=== PATIENT | male | born 1955 | race American Indian/Alaskan Native ===

== ENCOUNTER 2019-11-18 13:50 | Inpatient (IN) | payer OTHER ==
--- NOTE | 2019-11-18 14:31 | BHS.RME ---
Substance Use & Tx History - Substance Use History Alcohol Substance amount: 1/2 pint to 1 pint vodka Frequency of use: Daily Substance route: Oral Date of Last Use: 11/17/19 Physical/Psych/Mental Status - Behavior General Behavior: Increased activity (restlessness, agitation) Eye Contact: Normal - Cooperativeness Cooperativeness: Cooperative - Thinking Thought Processes: Tight, Logical, Goal Directed Thought content: Future oriented - Physical Health Problems Is patient presently having any pain?: No Does patient presently have any injuries (include location): No Does patient currently have a fever: No Is patient : No CIWA Nausea/Vomitin-No Nausea/No Vomiting Muscle Tremors: 1-None Visible, but [place] Anxiety: 0-No Anxiety, at Ease Agitation: 0-Normal Activity Paroxysmal Sweats: No Perspiration Orientation: 0-Oriented Tacttile Disturbances: 0-None Auditory Disturbances: 0-None Visual Disturbances: 0-None
--- NOTE | 2019-11-18 14:40 | BHS.RME ---
Substance Use & Tx History - Substance Use History Alcohol Substance amount: 1/2 pint to 1 pint vodka Frequency of use: Daily Substance route: Oral Date of Last Use: 11/18/19 Physical/Psych/Mental Status - Behavior General Behavior: Increased activity (restlessness, agitation) Eye Contact: Normal - Cooperativeness Cooperativeness: Cooperative - Thinking Thought Processes: Tight, Logical, Goal Directed - Physical Health Problems Is patient presently having any pain?: No Does patient presently have any injuries (include location): No Does patient currently have a fever: No Is patient : No CIWA Nausea/Vomitin-Mild Nausea/No Vomiting Muscle Tremors: 3 Anxiety: 2 Agitation: 2 Paroxysmal Sweats: 1-Minimal Palms Moist Orientation: 1-Uncertain about Date Tacttile Disturbances: 0-None Auditory Disturbances: 0-None Visual Disturbances: 0-None Headache: 0-None Present (not yet in withdrawals due to having drank today) CIWA-Ar Total Score: 10
[2019-11-18 15:51] VITALS: BMI 21.4
--- NOTE | 2019-11-18 16:43 | HP ---
CIWA Score Nausea/Vomitin-Mild Nausea/No Vomiting Muscle Tremors: 3 Anxiety: 2 Agitation: 2 Paroxysmal Sweats: 1-Minimal Palms Moist Orientation: 1-Uncertain about Date Tacttile Disturbances: 0-None Auditory Disturbances: 0-None Visual Disturbances: 0-None Headache: 0-None Present (not yet in withdrawals due to having drank today) CIWA-Ar Total Score: 10 - Admission Criteria OASAS Guidelines: Admission for Medically Managed Detox: Requires at least one of the followin. CIWA greater than 12 2. Seizures within the past 24 hours 3. Delirium tremens within the past 24 hours 4. Hallucinations within the past 24 hours 5. Acute intervention needed for co occurring medical disorder 6. Acute intervention needed for co occurring psychiatric disorder 7. Severe withdrawal that cannot be handled at a lower level of care (continued vomiting, continued diarrhea, abnormal vital signs) requiring intravenous medication and/or fluids 8. Admitting History and Physical - Admission Chief Complaint: alcohol detox History of Present Illness: CC: Alcohol Detox and leg swelling HPI: Michoacano is a 64 year old man from [facility], who presents to [facility] for alcohol detox and painful leg swelling. He states that the leg swelling started on the evening of 11/07; the swelling increased and he sought care on 11/10 in the ED at [facility] -- he states that they 'did not do anything for me'. On 11/16 he was seen in outpatient clinic (does not remember by who or where) and was told to report to [facility] for treatment. He states that he is experiencing a burning sensation 11/06 in the calves and feet. His shoes have been hurting his feet, and have caused an abrasion that is now draining purulent fluid over the dorsal aspect of the right foot. He does use a cane at baseline (for occasional pain radiating down the right leg), but has never experienced swelling like this before. He reports that a month ago he experienced 2 days of vomiting and decreased appetite, followed by 10 days of chest pain that resolved with rest. He started drinking at age 21, has had withdrawal seizures in the past (last 10 years ago). Will be transferred to ED at [facility] [[email or web address]] - Substance Use History Alcohol Substance amount: 1/2 pint vodka Frequency of use: Daily Substance route: Oral Date of Last Use: 11/18/19 PMH: Hypertension PSH: Surgical intervention for laceration wound to left calf (~2004) Psych: None Social: Lives with in [place] History Source: Patient Limitations to Obtaining History: No Limitations - Smoking History Smoking history: Former smoker Have you smoked in the past 12 months: No If you are a former smoker, when did you quit?: 07/17 - Alcohol/Substance Use Hx Alcohol Use: Yes - Social History Usual Living Arrangement: Yes: With Spouse Admission ROS S - [facility] Chief Complaint: alcohol detox Allergies/Adverse Reactions: Allergies Allergy/AdvReac Type Severity Reaction Status Date / Time No Known Allergies Allergy Verified 11/18/19 15:44 Exam Limitations: No Limitations - Ebola screening Have you traveled outside of the country in the last 21 days: No Have you had contact with anyone from an Ebola affected area: No Have you been sick,other than usual withdrawal symptoms: No Do you have a fever: No - Review of Systems Constitutional: No Symptoms Reported EENT: denies: Eye Pain, Ear Pain, Nose Congestion Respiratory: denies: Cough, Orthopnea, Shortness of Breath Cardiac: reports: Edema. denies: Chest Pain GI: denies: Constipated, Diarrhea, Nausea, Rectal Bleeding, Vomiting, Abdominal cramping : reports: No Symptoms Reported Musculoskeletal: reports: Back Pain (lower back pain), Joint Pain (knee pain hx arthritis) Integumentary: reports: Change in Color (reports recent development of hyperpigmentation over feet, ankles, and lower calves - onset coinciding with development of edema). denies: Pruritus, Rash Neuro: reports: Numbness (bilateral feet), Unsteady Gait. denies: Headache Endocrine: reports: No Symptoms Reported Hematology: reports: No Symptoms Reported Psychiatric: reports: No Sypmtoms Reported Patient History - Patient Medical History Hx Asthma: No Hx Chronic Obstructive Pulmonary Disease (COPD): No Hx Cardiac Disorders: No Hx Hypertension: Yes Hx Seizures: No Hx Diabetes: No Hx Gastrointestinal Disorders: No Hx Genitourinary Disorders: No Hx Sexually Transmitted Disorders: No Hx Renal Disease (ESRD): No Hx Depression: Yes Hx Suicide Attempt: No Hx Schizophrenia: No - Patient Surgical History Past Surgical History: Yes Hx Orthopedic Surgery: Yes (L leg sx) Anesthesia Reaction: No - PPD History Previous Implant?: Yes Documented Results: Negative w/o proof Implanted On Prior [facility] Admission?: No - Smoking Cessation Smoking history: Current every day smoker Have you smoked in the past 12 months: No If you are a former smoker, when did you quit?: 07/17 Hx Chewing Tobacco Use: No Initiated information on smoking cessation: Yes 'Breaking Loose' booklet given: 11/18/19 - Substances abused Alcohol Substance route: Oral Frequency: 3-6 times per week Amount used: /2 pint vodka Age of first use: 21 Date of last use: 11/18/19 Admission Physical Exam S - Vital Signs Vital Signs: Vital Signs - 24 hr 11/18/19 15:48 Temperature 97.7 F Pulse Rate 86 Respiratory 18 Rate Blood Pressure 178/94 H - Physical General Appearance: Yes: Thin, Tremorous, Anxious, Other (thin man resting in chair with lower extremity edema) HEENTM: Yes: Normocephalic, Normal Voice Respiratory: Yes: Within Normal Limits, Lungs Clear, No Accessory Muscle Use Neck: Yes: Within Normal Limits Breast: Yes: Breast Exam Deferred Cardiology: Yes: Regular Rhythm, S1, S2, Tachycardia Abdominal: Yes: Normal Bowel Sounds, Non Tender, Flat, Soft Back: Yes: CVA Tenderness (lumbar spine) Musculoskeletal: Yes: Joint swelling (bilateral knees), Muscle Pain (bilateral calves) Extremities: Yes: Other (Bilateral lower extremity edema 2+ with hyperpigmentation of feet and ankles.) Neurological: Yes: Within Normal Limits, Fully Oriented, Alert, Normal Mood/Affect Integumentary: Yes: Pitting Edema - Diagnostic (1) Alcohol use disorder Current Visit: Yes Status: Acute (2) Hypertension Current Visit: Yes Status: Acute Breathalyzer - Breathalyzer Breathalyzer: 0.074 Urine Drug Screen - Test Device Lot number: [id number] Expiration date: 07/05/21 - Control Is test valid?: Yes - Results Drug screen NEGATIVE: No Urine drug screen results: BZO-Benzodiazepines Inpatient Rehab Admission - Rehab Decision to Admit Inpatient rehab admission?: No
--- NOTE | 2019-11-19 02:53 | PN ---
EVEL[facility] Progress Note Note: Patient came back from emergency room where he was sent to evaluate bilateral leg pain and swelling. In emergency room, he was evaluated with lab work, ultrasound, EKG and chest x-ray and the results were within normal. Patient is to continue detox and medications as ordered. Vital Signs Temperature 97.5 F L 11/19/19 02:38 Pulse Rate 91 H 11/19/19 02:38 Respiratory Rate 18 11/19/19 02:38 Blood Pressure 166/96 11/19/19 02:38 O2 Sat by Pulse Oximetry (%) Action: Continue detox
[2019-11-19] MEDS ORDERED: BISMUTH SUBSALICYLATE 524 MG/30 ML UD PO PRN (03:00)
[2019-11-19] MEDS ORDERED: METHOCARBAMOL 500 MG TABLET PO PRN (03:00)
[2019-11-19] MEDS ORDERED: MAG HYDROX/AL HYDROX/SIMETH 30 ML UNIT-DOSE CUP PO PRN (03:00)
[2019-11-19] MEDS ORDERED: ACETAMINOPHEN 325 MG TABLET (FP) PO PRN ×2 (03:00)
[2019-11-19] MEDS ORDERED: MENTHOL/PHENOL 1 EACH UD MM PRN (03:00)
[2019-11-19] MEDS ORDERED: ONDANSETRON *ODT* 4 MG TABLET SL ONE (03:00)
[2019-11-19] MEDS ORDERED: MAGNESIUM HYDROX 2400MG/30ML ORAL SUSPENSION 30 ML CUP PO PRN (03:00)
[2019-11-19] MEDS ORDERED: MAGNESIUM CITRATE 300 ML BOTTLE PO PRN (03:00)
[2019-11-19] MEDS ORDERED: IBUPROFEN 400 MG TABLET (FP) PO PRN (03:00)
[2019-11-19] MEDS ORDERED: chlordiazePOXIDE HCL 10 MG CAPSULE PO PRN (03:00)
[2019-11-19] MEDS ORDERED: cloNIDine HCL 0.1 MG TABLET PO ONE (04:14)
[2019-11-19] MEDS: chlordiazePOXIDE HCL 25 MG CAPSULE PO SCH ×3 (04:32→21:07)
[2019-11-19] MEDS ORDERED: PATIENT'S OWN MEDICATION (NON-FORMULARY) (Thiamine Mononitrate [Vitamin B-1] 100 MG) PO SCH (10:00)
--- NOTE | 2019-11-19 10:10 | PN ---
[facility] CIWA - CIWA Score Nausea/Vomitin-No Nausea/No Vomiting Muscle Tremors: 2 Anxiety: 2 Agitation: 2 Paroxysmal Sweats: No Perspiration Orientation: 0-Oriented Tacttile Disturbances: 0-None Auditory Disturbances: 2-Mild Harshness/Frighten Visual Disturbances: 1-Very Mild Sensitivity Headache: 0-None Present CIWA-Ar Total Score: 9 BHS Progress Note (SOAP) Subjective: Complaints of b/l legs swelling and pain, anxiety, tremors, light and noise sensitivity. Objective: 11/19/19 10:08 Vital Signs 11/19/19 11/19/19 11/19/19 02:38 04:00 04:01 Temperature 97.5 F L 97.1 F L Pulse Rate 91 H 86 80 Respiratory 18 16 16 Rate Blood Pressure 166/96 140/114 H 180/103 H O2 Sat by Pulse 96 Oximetry (%) Labs pending Assessment: 11/19/19 10:09 Alert and oriented x 3, in no acute respiratory distress. Full ROM, ambulating in the unit with cane. B/l legs swelling Withdrawal symptoms. 11/19/19 10:10 Plan: Continue detox protocol. B/l leg elevation.
[2019-11-19] MEDS: PRENATAL VITAMINS W/ FOLIC ACID TABLET (FP) PO SCH (10:20)
[2019-11-19] MEDS: FAMOTIDINE 20 MG TABLET PO SCH (10:20)
[2019-11-19] MEDS: LISINOPRIL 10 MG TABLET (FP) PO SCH (10:20)
[2019-11-19] MEDS: FOLIC ACID 1 MG TABLET (FP) PO SCH (11:58)
[2019-11-19] MEDS: CYANOCOBALAMIN 1,000 MCG TABLET (FP) PO SCH (11:59)
[2019-11-19 12:21] LABS: HEMATOCRIT 25.6 % (35.4-49); HEMOGLOBIN 8.4 GM/dL (11.7-16.9); MCH 32.8 pg (25.7-33.7); MCHC 32.7 g/dl (32.0-35.9); MEAN CELL VOLUME 100.3 fl (80-96); MEAN PLT VOLUME 9.3 fl (7.5-11.1); PLATELET COUNT 221 K/MM3 (134-434); RBC 2.55 M/mm3 (4.00-5.60); RDW 14.3 % (11.9-15.9); WHITE BLOOD COUNT 7.4 K/mm3 (4.0-10.0)
[2019-11-19 12:34] LABS: BILIRUBIN,TOTAL 0.9 mg/dL (0.2-1); BLOOD UREA NITROGEN 14.5 mg/dL (7-18); CALCIUM 8.5 mg/dL (8.5-10.1); CREATININE 1.1 mg/dL (0.55-1.3); POTASSIUM 4.6 mmol/L (3.5-5.1)
[2019-11-19] MEDS: THIAMINE HCL 100 MG TABLET (FP) PO SCH (21:07)
[2019-11-19] MEDS: MELATONIN 5 MG TABLETS PO SCH (21:08)
[2019-11-20] MEDS: chlordiazePOXIDE 5 MG CAPSULE PO SCH ×3 (06:51→21:32)
[2019-11-20] MEDS: FOLIC ACID 1 MG TABLET (FP) PO SCH (10:15)
[2019-11-20] MEDS: CYANOCOBALAMIN 1,000 MCG TABLET (FP) PO SCH (10:15)
[2019-11-20] MEDS: FAMOTIDINE 20 MG TABLET PO SCH (10:15)
[2019-11-20] MEDS: LISINOPRIL 10 MG TABLET (FP) PO SCH (10:15)
[2019-11-20] MEDS: PRENATAL VITAMINS W/ FOLIC ACID TABLET (FP) PO SCH (10:15)
--- NOTE | 2019-11-20 13:28 | PN ---
S CIWA - CIWA Score Nausea/Vomitin-No Nausea/No Vomiting Muscle Tremors: 2 Anxiety: 2 Agitation: 2 Paroxysmal Sweats: 2 Orientation: 0-Oriented Tacttile Disturbances: 0-None Auditory Disturbances: 0-None Visual Disturbances: 0-None Headache: 0-None Present CIWA-Ar Total Score: 8 BHS Progress Note (SOAP) Subjective: Complaints of sweats, shakes,anxiety and swelling legs ( more of the left) Objective: 11/20/19 13:26 Vital Signs 11/20/19 11/20/19 11/20/19 07:59 08:00 09:26 Temperature 98.0 F Pulse Rate 65 74 85 Respiratory 16 Rate Blood Pressure 189/92 H 180/100 H 167/108 H Laboratory Last Values WBC 7.4 K/mm3 (4.0-10.0) 11/19/19 07:15 RBC 2.55 M/mm3 (4.00-5.60) L 11/19/19 07:15 Hgb 8.4 GM/dL (11.7-16.9) L 11/19/19 07:15 Hct 25.6 % (35.4-49) L 11/19/19 07:15 MCV 100.3 fl (80-96) H 11/19/19 07:15 MCH 32.8 pg (25.7-33.7) 11/19/19 07:15 MCHC 32.7 g/dl (32.0-35.9) 11/19/19 07:15 RDW 14.3 % (11.9-15.9) 11/19/19 07:15 Plt Count 221 K/MM3 (134-434) 11/19/19 07:15 MPV 9.3 fl (7.5-11.1) 11/19/19 07:15 Sodium 143 mmol/L (136-145) 11/19/19 07:15 Potassium 4.6 mmol/L (3.5-5.1) 11/19/19 07:15 Chloride 112 mmol/L (98-107) H 11/19/19 07:15 Carbon Dioxide 24 mmol/L (21-32) 11/19/19 07:15 Anion Gap 8 MMOL/L (8-16) 11/19/19 07:15 BUN 14.5 mg/dL (7-18) 11/19/19 07:15 Creatinine 1.1 mg/dL (0.55-1.3) 11/19/19 07:15 Est GFR (CKD-EPI)AfAm 82.37 11/19/19 07:15 Est GFR (CKD-EPI)NonAf 71.07 11/19/19 07:15 Random Glucose 167 mg/dL (74-106) H 11/19/19 07:15 Calcium 8.5 mg/dL (8.5-10.1) 11/19/19 07:15 Total Bilirubin 0.9 mg/dL (0.2-1) 11/19/19 07:15 AST 17 U/L (15-37) 11/19/19 07:15 ALT 17 U/L (13-61) 11/19/19 07:15 Alkaline Phosphatase 59 U/L (45-117) 11/19/19 07:15 Total Protein 6.0 g/dl (6.4-8.2) L 11/19/19 07:15 Albumin 3.0 g/dl (3.4-5.0) L 11/19/19 07:15 Syphilis Serology Non-reactive (NONREACTIVE) 11/19/19 07:15 Labs noted. Assessment: 11/20/19 13:26 Patient was seen and examined at bedside. Alert and oriented x 3, in no acute respiratory distress. Lungs clear to auscultation. Full ROM, ambulatory without assistance. Withdrawal symptoms. B/L LE swelling Plan: Continue detox protocol. Leg elevation.
[2019-11-20] MEDS ORDERED: LISINOPRIL 10 MG TABLET (FP) PO ONE (14:08)
[2019-11-20] MEDS: LISINOPRIL 20 MG TABLET (FP) PO SCH (21:32)
[2019-11-20] MEDS: THIAMINE HCL 100 MG TABLET (FP) PO SCH (21:32)
[2019-11-20] MEDS: MELATONIN 5 MG TABLETS PO SCH (21:32)
[2019-11-21] MEDS ORDERED: chlordiazePOXIDE HCL 10 MG CAPSULE PO PRN
[2019-11-21] MEDS: chlordiazePOXIDE HCL 10 MG CAPSULE PO SCH ×3 (05:33→21:28)
[2019-11-21] MEDS: FOLIC ACID 1 MG TABLET (FP) PO SCH (10:14)
[2019-11-21] MEDS: FAMOTIDINE 20 MG TABLET PO SCH (10:14)
[2019-11-21] MEDS: CYANOCOBALAMIN 1,000 MCG TABLET (FP) PO SCH (10:14)
[2019-11-21] MEDS: LISINOPRIL 20 MG TABLET (FP) PO SCH ×2 (10:14→21:27)
[2019-11-21] MEDS: PRENATAL VITAMINS W/ FOLIC ACID TABLET (FP) PO SCH (10:14)
--- NOTE | 2019-11-21 10:19 | PN ---
[facility] CIWA - CIWA Score Nausea/Vomitin-No Nausea/No Vomiting Muscle Tremors: 2 Anxiety: 2 Agitation: 2 Paroxysmal Sweats: No Perspiration Orientation: 0-Oriented Tacttile Disturbances: 0-None Auditory Disturbances: 0-None Visual Disturbances: 0-None Headache: 1-Very Mild CIWA-Ar Total Score: 7 S Progress Note (SOAP) Subjective: alert,irritable,anxious,interrupted sleep,aching pain,chronic edema both legs Objective: 11/21/19 10:18 Vital Signs Temperature 99.1 F 11/21/19 08:25 Pulse Rate 92 H 11/21/19 08:25 Respiratory Rate 18 11/21/19 08:25 Blood Pressure 159/88 11/21/19 08:25 O2 Sat by Pulse Oximetry (%) 98 11/21/19 09:46 Laboratory Last Values WBC 7.4 K/mm3 (4.0-10.0) 11/19/19 07:15 RBC 2.55 M/mm3 (4.00-5.60) L 11/19/19 07:15 Hgb 8.4 GM/dL (11.7-16.9) L 11/19/19 07:15 Hct 25.6 % (35.4-49) L 11/19/19 07:15 MCV 100.3 fl (80-96) H 11/19/19 07:15 MCH 32.8 pg (25.7-33.7) 11/19/19 07:15 MCHC 32.7 g/dl (32.0-35.9) 11/19/19 07:15 RDW 14.3 % (11.9-15.9) 11/19/19 07:15 Plt Count 221 K/MM3 (134-434) 11/19/19 07:15 MPV 9.3 fl (7.5-11.1) 11/19/19 07:15 Sodium 143 mmol/L (136-145) 11/19/19 07:15 Potassium 4.6 mmol/L (3.5-5.1) 11/19/19 07:15 Chloride 112 mmol/L (98-107) H 11/19/19 07:15 Carbon Dioxide 24 mmol/L (21-32) 11/19/19 07:15 Anion Gap 8 MMOL/L (8-16) 11/19/19 07:15 BUN 14.5 mg/dL (7-18) 11/19/19 07:15 Creatinine 1.1 mg/dL (0.55-1.3) 11/19/19 07:15 Est GFR (CKD-EPI)AfAm 82.37 11/19/19 07:15 Est GFR (CKD-EPI)NonAf 71.07 11/19/19 07:15 Random Glucose 167 mg/dL (74-106) H 11/19/19 07:15 Calcium 8.5 mg/dL (8.5-10.1) 11/19/19 07:15 Total Bilirubin 0.9 mg/dL (0.2-1) 11/19/19 07:15 AST 17 U/L (15-37) 11/19/19 07:15 ALT 17 U/L (13-61) 11/19/19 07:15 Alkaline Phosphatase 59 U/L (45-117) 11/19/19 07:15 Total Protein 6.0 g/dl (6.4-8.2) L 11/19/19 07:15 Albumin 3.0 g/dl (3.4-5.0) L 11/19/19 07:15 Syphilis Serology Non-reactive (NONREACTIVE) 11/19/19 07:15 COVID-19 (MURPHY) Not detected (Not Detected) 11/19/19 03:03 Assessment: 11/21/19 10:19 withdrawal symptom Plan: continue detox librium regimen,anemia,will give ferrous sulfate 325 mgs po bid,plan for discharge in am,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
[2019-11-21] MEDS: FERROUS SO4 325 MG TABLET (FP) PO SCH ×2 (12:41→21:27)
[2019-11-21] MEDS: THIAMINE HCL 100 MG TABLET (FP) PO SCH (21:27)
[2019-11-21] MEDS: MELATONIN 5 MG TABLETS PO SCH (21:29)
[2019-11-22] MEDS ORDERED: chlordiazePOXIDE HCL 10 MG CAPSULE PO ONE (05:00)
[2019-11-22] MEDS ORDERED: cloNIDine HCL 0.1 MG TABLET PO ONE (07:21)
--- NOTE | 2019-11-22 07:22 | PN ---
BHS Progress Note Note: Patient's blood pressure is B/P 180/105 and 194/105 respectively. Patient is asymptomatic. Vital Signs 11/22/19 11/22/19 07:20 07:22 Temperature 98.2 F Pulse Rate 88 85 Respiratory 18 Rate Blood Pressure 180/105 H 194/105 H O2 Sat by Pulse 96 Oximetry (%) Action: Clonidine 0.1mg tablet oral ordered
[2019-11-22 07:23] VITALS: PULSE 85
[2019-11-22] MEDS: LISINOPRIL 20 MG TABLET (FP) PO SCH (10:26)
[2019-11-22] MEDS: FOLIC ACID 1 MG TABLET (FP) PO SCH (10:26)
[2019-11-22] MEDS: FAMOTIDINE 20 MG TABLET PO SCH (10:26)
[2019-11-22] MEDS: PRENATAL VITAMINS W/ FOLIC ACID TABLET (FP) PO SCH (10:26)
[2019-11-22] MEDS: CYANOCOBALAMIN 1,000 MCG TABLET (FP) PO SCH (10:26)
[2019-11-22] MEDS: FERROUS SO4 325 MG TABLET (FP) PO SCH (10:26)
--- NOTE | 2019-11-22 10:57 | PN ---
[facility] CIWA - CIWA Score Nausea/Vomitin-No Nausea/No Vomiting Muscle Tremors: None Anxiety: 1-Mildly Anxious Agitation: 0-Normal Activity Paroxysmal Sweats: No Perspiration Orientation: 0-Oriented Tacttile Disturbances: 0-None Auditory Disturbances: 0-None Visual Disturbances: 0-None Headache: 0-None Present CIWA-Ar Total Score: 1 S Progress Note (SOAP) Subjective: alert,oriented x 3,no complaint Objective: 11/22/19 10:55 Vital Signs Temperature 98.2 F 11/22/19 07:20 Pulse Rate 85 11/22/19 07:22 Respiratory Rate 18 11/22/19 07:20 Blood Pressure 194/105 H 11/22/19 07:22 O2 Sat by Pulse Oximetry (%) 96 11/22/19 07:20 Assessment: 11/22/19 10:56 no withdrawal symptom Plan: detox completed,no withdrawal symptom,discharge today
--- NOTE | 2019-11-22 11:08 | DS ---
[facility] Detox Discharge Summary Admission Date: 11/19/19 Discharge Date: 11/22/19 - History Present History: Alcohol Dependence Additional Comments: alert,oriented x3 lung clear on auscultation bilaterally abdomen soft,no pain,no tenderness ambulation on the unit with cane stale for discharge no withdrawal symptom patient declined rehab stated he will go home,stay with his and daughter will go to see his medical provider at [facility] and out patient program near his home total time spending on discharge 35 minutes left the unit in good and stable condition Pertinent Past History: hypertension chronic edema of legs anemia ambulation with cane gerd - Physical Exam Results Vital Signs: Vital Signs Temperature 98.2 F 11/22/19 07:20 Pulse Rate 85 11/22/19 07:22 Respiratory Rate 18 11/22/19 07:20 Blood Pressure 194/105 H 11/22/19 07:22 O2 Sat by Pulse Oximetry (%) 96 11/22/19 07:20 Pertinent Admission Physical Exam Findings: withdrawal signs and symptom - Treatment Hospital Course: Detox Protocol Followed, Detoxed Safely, Responded well, Discharged Condition Good Patient has Accepted a Rehab Referral to: declined - Medication Discharge Medications: Ambulatory Orders Acetaminophen 500 mg PO Q6H PRN 11/18/19 Lisinopril 10 mg PO DAILY 11/18/19 Thiamine Mononitrate [Vitamin B-1] 100 mg PO DAILY 11/18/19 Cyanocobalamin [Vitamin B12 -] 1,000 mcg PO DAILY 15 Days #15 tab 11/22/19 Famotidine 20 mg PO DAILY 30 Days #30 tab 11/22/19 Ferrous Sulfate [Feosol] 325 mg PO BID 15 Days #30 tab 11/22/19 Folic Acid - 1 mg PO DAILY 30 Days #30 tab 11/22/19 Lisinopril [Prinivil] 20 mg PO BID #60 tablet 11/22/19 - Diagnosis (1) Alcohol dependence with uncomplicated withdrawal Current Visit: Yes Status: Acute (2) Hypertension Current Visit: Yes Status: Acute (3) Edema of leg Current Visit: Yes Status: Acute (4) Ambulates with cane Current Visit: Yes Status: Acute (5) GERD (gastroesophageal reflux disease) Current Visit: Yes Status: Acute (6) Anemia Current Visit: Yes Status: Acute - AMA Did Patient Leave Against Medical Advice: No
[2019-11-22 11:18] VITALS: BP 145/83; TEMP 98.4
--- NOTE | 2019-11-22 12:01 | PN ---
[facility] Progress Note Note: addendum life style change on diet modification low salt and no concentrated diet advise,to see medical provider for evaluation of medical issue,hypertension,edema of legs,anemia,to go to emergency room if any problem,patient denied headache,denied sob,denied chest pain,denied difficulty in breathing
--- NOTE | 2019-11-23 09:16 | PN ---
Teaching Attending Note Name of Resident: Shantell Smith ATTENDING PHYSICIAN STATEMENT I saw and evaluated the patient. I reviewed the resident's note and discussed the case with the resident. I agree with the resident's findings and plan as documented. SUBJECTIVE: OBJECTIVE: ASSESSMENT AND PLAN: Agreed with resident's findings and plans for detox.
== END 2019-11-22 11:25 | disposition home or self-care (01) | DRG 775 ==
LOC: YASAS 13:50 → UNDOADMIN 15:45 → Y3N 15:45 → Y6N 11-19 02:40
PROVIDERS: ADMIT Allergy & Immunology; ATTEND Allergy & Immunology
PROC: HZ2ZZZZ Detoxification Services for Substance Abuse Treatment (ICD-10-PCS; principal; 2019-11-19)
DX: F10.230 Alcohol dependence with withdrawal, uncomplicated (principal); D64.9 Anemia, unspecified; K21.9 Gastro-esophageal reflux disease without esophagitis; I10 Essential (primary) hypertension; R60.0 Localized edema; L81.4 Other melanin hyperpigmentation; Z99.89 Dependence on other enabling machines and devices
CPT/HCPCS: 36415; 80053; 85027; 86780; J0735; U0003